=== PATIENT | female | born 1975 | race Caucasian/White ===

== ENCOUNTER 2016-10-25 02:26 | Emergency (ER) | payer MEDICAID ==
[2016-10-25] MEDS ORDERED: MORPHINE SULFATE 10 MG/ML INJ IV ONE ×2 (03:21→12:06)
[2016-10-25] MEDS ORDERED: ONDANSETRON HCL INJ/PF 4 MG/2 ML SDV IV ONE ×2 (03:21→12:06)
[2016-10-25] MEDS ORDERED: NORMAL SALINE 1000 ML 1,000 ML IV ONE ×2 (03:21→05:32)
--- NOTE | 2016-10-25 03:28 | ER Document Report ---
ED GI/ - General Chief Complaint: Epigastric Pain Stated Complaint: ABDOMINAL PAIN AND CHEST PAIN Time seen by provider: 03:20 Notes: Patient is a 41-year-old female that comes emergency department for chief complaint of pain in her chest (she points to the epigastric area), she states the pain radiates through to her back. Symptoms started after eating dinner, she states she has vomited multiple times. Patient has had an appendectomy, tubal ligation, denies recent alcohol, denies any daily medications or medical history otherwise. She denies any cardiovascular history. TRAVEL OUTSIDE OF THE [place] IN LAST 30 DAYS: No - Related Data Allergies/Adverse Reactions: No Known Allergies Allergy (Verified 10/25/16 02:37) Past Medical History - General Information source: Patient - Social History Smoking Status: Never Smoker Frequency of alcohol use: Occasional Drug Abuse: None Lives with: Family Family History: Reviewed & Not Pertinent - Past Medical History Cardiac Medical History: Reports: Hx Hypercholesterolemia Denies: Hx Atrial Fibrillation, Hx Congestive Heart Failure, Hx Coronary Artery Disease, Hx Heart Attack, Hx Hypertension, Hx Peripheral Vascular Disease , Hx Pulmonary Embolism, Hx Heart Murmur Pulmonary Medical History: Denies: Hx Asthma, Hx Bronchitis, Hx COPD, Hx Pneumonia, Hx Respiratory Failure, Hx Sleep Apnea, Hx Tuberculosis Endocrine Medical History: Denies: Hx Graves' Disease, Hx Hyperthyroidism, Hx Hypothyroidism Renal/ Medical History: Reports: Hx Ovarian Cysts. Denies: Hx End Stage Renal Disease, Hx Kidney Stones, Hx Peritoneal Dialysis, Hx Pelvic Inflammatory Disease Malignancy Medical History: Denies: Hx Breast Cancer, Hx Cervical Cancer, Hx Leukemia, Hx Lung Cancer, Hx Ovarian Cancer GI Medical History: Denies: Hx Crohn's Disease, Hx Gastroesophageal Reflux Disease, Hx Hiatal Hernia, Hx Irritable Bowel, Hx Liver Failure, Hx Ulcer Musculoskeltal Medical History: Denies Hx Arthritis, Denies Hx Fibromyalgia, Denies Hx Muscular Dystrophy Psychiatric Medical History: Denies: Hx Bipolar Disorder, Hx Depression, Hx Post Traumatic Stress Disorder , Hx Schizophrenia Traumatic Medical History: Denies: Hx Fractures Infectious Medical History: Denies: Hx HIV Past Surgical History: Reports: Hx Appendectomy, Hx Section, Hx Orthopedic Surgery, Hx Tubal Ligation. Denies: Hx Bowel Surgery, Hx Cholecystectomy, Hx Colostomy, Hx Coronary Artery Bypass Graft, Hx Gastric Bypass Surgery, Hx Herniorrhaphy, Hx Hysterectomy, Hx Mastectomy, Hx Pacemaker, Hx Tonsillectomy - Immunizations Hx Diphtheria, Pertussis, Tetanus Vaccination: No Review of Systems - Review of Systems Constitutional: No symptoms reported EENT: No symptoms reported Cardiovascular: No symptoms reported Respiratory: No symptoms reported Gastrointestinal: See HPI Genitourinary: No symptoms reported Female Genitourinary: No symptoms reported Musculoskeletal: No symptoms reported Skin: No symptoms reported Hematologic/Lymphatic: No symptoms reported Neurological/Psychological: No symptoms reported Physical Exam - Vital signs Vitals: Temp Pulse Resp BP Pulse Ox 97.6 F 71 20 146/80 H 100 10/25/16 02:38 10/25/16 02:38 10/25/16 02:38 10/25/16 02:38 10/25/16 02:38 Interpretation: Normal - General General appearance: Alert, Anxious In distress: Severe - Patient in obvious distress, tearful, holding her abdomen , curled into a ball, lying on her side - HEENT Head: Normocephalic, Atraumatic Eyes: Normal Conjunctiva: Normal Extraocular movements intact: Yes Eyelashes: Normal Pupils: PERRL Nasal: Normal Mouth/Lips: Normal Mucous membranes: Normal Pharynx: Normal Neck: Normal - Respiratory Respiratory status: No respiratory distress Chest status: Nontender Breath sounds: Normal Chest palpation: Normal - Cardiovascular Rhythm: Regular Heart sounds: Normal auscultation Murmur: No - Abdominal Inspection: Normal Distension: No distension Bowel sounds: Normal Tenderness: Tender - Tender with guarding in the right upper quadrant and epigastric area, Guarding Organomegaly: No organomegaly - Back Back: Normal, Nontender - Extremities General upper extremity: Normal inspection, Nontender, Normal color, Normal ROM , Normal temperature General lower extremity: Normal inspection, Nontender, Normal color, Normal ROM , Normal temperature, Normal weight bearing. No: Torito's sign - Neurological Neuro grossly intact: Yes Cognition: Normal Orientation: AAOx4 Jyoti Coma Scale Eye Opening: Spontaneous Jyoti Coma Scale Verbal: Oriented Jyoti Coma Scale Motor: Obeys Commands Jyoti Coma Scale Total: 15 Speech: Normal Motor strength normal: LUE, RUE, LLE, RLE Sensory: Normal - Psychological Associated symptoms: Agitated - Skin Skin Temperature: Warm Skin Moisture: Dry Skin Color: Normal Course - Re-evaluation Re-evalutation: Patient in distress on initial examination, guarding in right upper quadrant and epigastric area. CBC unremarkable, chemistry shows normal bilirubin and LFTs, normal alkaline phosphatase, however lipase is elevated at 1205. Ultrasound showing choledocholithiasis with very large widening of common bile duct at 12.5 mm. Gallstones present, no pericholecystic fluid or wall thickening. Patient is much more comfortable after medications. Patient discussed with Dr. Mckoy per [facility] protocol. 10/25/16 05:30 Called [facility] for potential transfer because of no GI coverage today. Pending call back. Spoke with Dr. Guerrero, patient accepted and pending transfer. 10/25/16 07:10 Introduced to Stella Arellano PA-C at bedside. Patient currently comfortable, no current complaints. - Vital Signs Vital signs: Temp Pulse Resp BP Pulse Ox 98.2 F 84 17 139/74 H 99 10/25/16 07:06 10/25/16 07:06 10/25/16 07:06 10/25/16 07:06 10/25/16 07:06 - Laboratory Result Diagrams: 10/25/16 03:48 10/25/16 03:48 Laboratory results interpreted by me: 10/25/16 03:48 Glucose 127 H Lipase 1205.8 H Discharge - Discharge Clinical Impression: Choledocholithiasis, Epigastric pain Pancreatitis Qualifiers: Chronicity: acute Pancreatitis type: unspecified pancreatitis type Acute pancreatitis complication: unspecified Qualified Code(s): K85.90 - Acute pancreatitis without necrosis or infection, unspecified Vomiting Qualifiers: Vomiting type: unspecified Vomiting Intractability: non-intractable Nausea presence: with nausea Qualified Code(s): R11.2 - Nausea with vomiting, unspecified Condition: Stable Disposition: [facility] [place]
[2016-10-25 03:55] LABS: ABSOLUTE BASOPHILS # (AUTO) 0.1 10^3/uL (0.0-0.2); ABSOLUTE EOSINOPHILS # (AUTO) 0.1 10^3/uL (0.0-0.6); ABSOLUTE MONOCYTES (AUTO) 0.7 10^3/uL (0.1-1.4); ABSOLUTE NEUT (AUTO) 7.3 10^3/uL (1.7-8.2); BASOPHILS % (AUTO) 0.7 % (0-2); EOSINOPHILS % (AUTO) 0.6 % (0-6); HEMATOCRIT 38.5 % (36.0-47.0); HEMOGLOBIN 13.3 g/dL (12.0-15.5); HGB HCT DIFFERENCE 1.4; LYMPHOCYTES % (AUTO) 19.5 % (13-45); MEAN CORPUSCULAR HEMOGLOBIN 28.6 pg (27.0-33.4); MEAN CORPUSCULAR HGB CONC 34.6 g/dL (32.0-36.0); MEAN CORPUSCULAR VOLUME 83 fl (80-97); MONOCYTES % (AUTO) 7.2 % (3-13); RED BLOOD COUNT 4.65 10^6/uL (3.72-5.28); RED CELL DISTRIBUTION WIDTH 13.2 % (11.5-14.0); WHITE BLOOD COUNT 10.1 10^3/uL (4.0-10.5)
[2016-10-25] MEDS ORDERED: KETOROLAC TROMETHAMINE INJ/PF 30 MG/1 ML SDV IV ONE (04:08)
[2016-10-25 04:39] LABS: ALANINE AMINOTRANSFERASE 25 U/L (9-52); ALBUMIN 4.3 g/dL (3.5-5.0); ALKALINE PHOSPHATASE 108 U/L (38-126); ANION GAP 15 (5-19); ASPARTATE AMINO TRANSFERASE 17 U/L (14-36); BILIRUBIN,DIRECT 0.3 mg/dL (0.0-0.4); BILIRUBIN,TOTAL 0.6 mg/dL (0.2-1.3); BLOOD UREA NITROGEN 17 mg/dL (7-20); CALCIUM 9.9 mg/dL (8.4-10.2); CARBON DIOXIDE 26 mmol/L (22-30); CHLORIDE 102 mmol/L (98-107); CREATINE KINASE 86 U/L (30-135); GLUCOSE 127 mg/dL (75-110); LIPASE 1205.8 U/L (23-300); POTASSIUM 4.1 mmol/L (3.6-5.0); SODIUM 142.7 mmol/L (137-145); TOTAL PROTEIN 7.5 g/dL (6.3-8.2)
[2016-10-25 04:50] LABS: CREATINE KINASE MB 0.73 ng/mL (<4.55)
[2016-10-25 04:55] LABS: TROPONIN I < 0.012 ng/mL
[2016-10-25 06:17] LABS: APPEARANCE,URINE SLIGHTLY-CLOUDY; BILIRUBIN,URINE NEGATIVE (NEGATIVE); GLUCOSE, URINE NEGATIVE (NEGATIVE); KETONES,URINE NEGATIVE (NEGATIVE); LEUKOCYTE ESTERASE,URINE NEGATIVE (NEGATIVE); NITRITE,URINE NEGATIVE (NEGATIVE); PROTEIN,URINE NEGATIVE (NEGATIVE); URINE SPECIFIC GRAVITY 1.004; UROBILINOGEN,URINE NEGATIVE mg/dL (<2.0)
[2016-10-25] MEDS ORDERED: NORMAL SALINE 1000 ML 1,000 ML IV PRN (06:26)
--- NOTE | 2016-10-25 10:11 | EKG REPORT ---
SEVERITY:- BORDERLINE ECG - SINUS RHYTHM SHORT ME INTERVAL, ACCELERATED AV CONDUCTION : Confirmed by: Soledad Strickland 25-Oct-2016 10:11:26
[2016-10-25] MEDS ORDERED: PIPERACILLIN/TAZOBACTAM 3.375 GM VIAL IV ONE (12:06)
[2016-10-25 15:20] VITALS: BP 107/50
== END 2016-10-25 15:19 | disposition short-term general hospital (02) ==
LOC: ER 02:26
DX: K80.50 Calculus of bile duct without cholangitis or cholecystitis without obstruction (principal); K85.90 Acute pancreatitis without necrosis or infection, unspecified; R10.13 Epigastric pain; R11.2 Nausea with vomiting, unspecified; R07.9 Chest pain, unspecified; E78.00 Pure hypercholesterolemia, unspecified; Z98.51 Tubal ligation status
CPT/HCPCS: 93005; 99285; 96361; 96375; 96365; 36415; 82553; 82550; 83690; 84703; 85025; 80053; 81001; 84484; 76705; 93010; J1885; J2270; J2405; J7030; J2543

== ENCOUNTER 2016-11-01 14:42 | Emergency (ER) | payer MEDICAID ==
--- NOTE | 2016-11-01 15:22 | ER Document Report ---
HPI - HPI Patient complains to provider of: vaginal itching Onset: Yesterday Onset/Duration: Gradual Pain Level: 4 Context: 41-year-old female has been on antibiotics for a while. She had brisk up a cholecystectomy on 10/28 in [place]. She states that her incisions are little sore but she is here because she thinks she has a vaginal yeast infection. sHe states his itching and some mild labial swelling and burning. No fever. Associated Symptoms: None - ROS ROS below otherwise negative: Yes Systems Reviewed and Negative: Yes All other systems reviewed and negative - REPRODUCTIVE Reproductive: DENIES: : - DERM Skin Color: Normal Past Medical History - General Information source: Patient - Social History Smoking Status: Unknown if Ever Smoked Frequency of alcohol use: None Drug Abuse: None Lives with: Family Family History: Reviewed & Not Pertinent Patient has suicidal ideation: No Patient has homicidal ideation: No - Past Medical History Cardiac Medical History: Reports: Hx Hypercholesterolemia Renal/ Medical History: Reports: Hx Ovarian Cysts Past Surgical History: Reports: Hx Appendectomy, Hx Section, Hx Orthopedic Surgery, Hx Tubal Ligation - Immunizations Hx Diphtheria, Pertussis, Tetanus Vaccination: No Vertical Provider Document - CONSTITUTIONAL Agree With Documented VS: Yes Exam Limitations: No Limitations General Appearance: No Apparent Distress - INFECTION CONTROL TRAVEL OUTSIDE OF THE [place] IN LAST 30 DAYS: No - HEENT HEENT: Normal ENT Exam - NECK Neck: Supple - RESPIRATORY Respiratory: Breath Sounds Normal, No Respiratory Distress O2 Sat by Pulse Oximetry: 98 - CARDIOVASCULAR Cardiovascular: Regular Rate, Regular Rhythm - GI/ABDOMEN Gastrointestinal: Abdomen Soft, Abdomen Non-Tender - incision sites look good - REPRODUCTIVE Notes: inflamed labia, thin discharge, no lesions. Qtip into vagina for wet prep. Course - Re-evaluation Re-evalutation: 11/01/16 17:04 Even though the wet prep did not show yeast since the predominant symptom is itching I will prescribe Diflucan, as well as metronidazole for BV and Macrobid for urinary tract infection. - Vital Signs Vital signs: Temp Pulse Resp BP Pulse Ox 98.7 F 100 16 134/84 H 98 11/01/16 15:11 11/01/16 15:11 11/01/16 15:11 11/01/16 15:11 11/01/16 15:11 Discharge - Discharge Clinical Impression: Bacterial vaginosis Urinary tract infection Qualifiers: Urinary tract infection type: acute cystitis Hematuria presence: without hematuria Qualified Code(s): N30.00 - Acute cystitis without hematuria Condition: Good Disposition: HOME, SELF-CARE Instructions: Vaginosis, Bacterial ([facility]), Urinary Tract Infection ([facility]), Metronidazole ([facility]), Nitrofurantoin ([facility]) Additional Instructions: DOMEBORO packets, dissolve per instructions as a cool compress to genitalia no alcohol with the metronidazole to er if worse urine culutre is pending Please complete the patient satisfaction survey if you get one, and return it.. If you do not receive a survey, then you can go to the [facility] website, [email or web address] and place your comments about your very good care. Thank you very much. It was a pleasure being your medical provider today. Prescriptions: Fluconazole [Diflucan] 150 mg PO ONCE PRN #1 tablet PRN Reason: Metronidazole 500 mg PO BID #14 tablet Nitrofurantoin/Nitrofuran Mac [Macrobid 100 mg Capsule] 100 mg PO BID #14 capsule Forms: Return to Work Referrals: MARTIN DAVIS MD [Primary Care Provider] - Follow up as needed
[2016-11-01 16:46] LABS: AMORPHOUS SEDIMENT,URINE TRACE /HPF; APPEARANCE,URINE CLOUDY; BILIRUBIN,URINE NEGATIVE (NEGATIVE); GLUCOSE, URINE NEGATIVE (NEGATIVE); KETONES,URINE NEGATIVE (NEGATIVE); LEUKOCYTE ESTERASE,URINE LARGE (NEGATIVE); NITRITE,URINE NEGATIVE (NEGATIVE); PROTEIN,URINE NEGATIVE (NEGATIVE); URINE SPECIFIC GRAVITY 1.011; UROBILINOGEN,URINE NEGATIVE mg/dL (<2.0)
[2016-11-01 17:14] VITALS: BP 125/82
== END 2016-11-01 17:14 | disposition home or self-care (01) ==
LOC: ER 14:42
DX: N76.0 Acute vaginitis (principal); B96.89 Other specified bacterial agents as the cause of diseases classified elsewhere; N30.00 Acute cystitis without hematuria; Z79.2 Long term (current) use of antibiotics; Z90.49 Acquired absence of other specified parts of digestive tract
CPT/HCPCS: 81001; 87210; 99283

== ENCOUNTER 2017-05-13 15:43 | Emergency (ER) | payer MEDICAID ==
[2017-05-13] MEDS ORDERED: LIDOCAINE 1% INJ-PF (10 MG/ML) 30 ML SDV INJ ONE (17:05)
--- NOTE | 2017-05-13 17:09 | ER Document Report ---
HPI - HPI Pain Level: 3 Notes: Patient is a 41-year-old female who presents ED complaining of a laceration to the left posterior thumb near the MCP joint prior to arrival. Patient states that she was trying to cut open a bag with a knife and caught her thumb in the process. Patient states that she is still able to move the thumb without any difficulties. She denies any numbness or tingling. Patient states that she was able to get the bleeding under control. She denies any other significant medical history or drug allergies. Denies any smoking or IV drug use. Denies any headache, fever, chest pain, palpitations, syncope, cough, shortness of breath, wheeze, dyspnea, abdominal pain, nausea/vomiting/diarrhea, muscle paralysis/weakness, or rash. Tetanus utd. - ROS Notes: REVIEW OF SYSTEMS: CONSTITUTIONAL : Denies fever, chills, or sweats. Denies recent illness. EENT: Denies eye, ear, throat, or mouth pain or symptoms. Denies nasal or sinus congestion or discharge. Denies throat, tongue, or mouth swelling or difficulty swallowing. CARDIOVASCULAR: Denies chest pain. Denies palpitations or racing or irregular heart beat. Denies ankle edema. RESPIRATORY: Denies cough, cold, or chest congestion. Denies shortness of breath, difficulty breathing, or wheezing. GASTROINTESTINAL: Denies abdominal pain or distention. Denies nausea, vomiting , or diarrhea. GENITOURINARY: Denies difficulty urinating, painful urination, burning, frequency, blood in urine, or discharge. MUSCULOSKELETAL: see hpi SKIN: see hpi NEUROLOGICAL: Denies confusion or altered mental status. Denies passing out or loss of consciousness. Denies dizziness or lightheadedness. Denies headache. Denies weakness or paralysis or loss of use of either side. Denies problems with gait or speech. Denies sensory loss, numbness, or tingling. ALL OTHER SYSTEMS REVIEWED AND NEGATIVE. Dictation was performed using [employer] voice recognition software - REPRODUCTIVE Reproductive: DENIES: : Past Medical History - Social History Smoking Status: Never Smoker Family History: Reviewed & Not Pertinent - Past Medical History Cardiac Medical History: Reports: Hx Hypercholesterolemia Denies: Hx Atrial Fibrillation, Hx Congestive Heart Failure, Hx Coronary Artery Disease, Hx Heart Attack, Hx Hypertension, Hx Peripheral Vascular Disease , Hx Pulmonary Embolism, Hx Heart Murmur Pulmonary Medical History: Denies: Hx Asthma, Hx Bronchitis, Hx COPD, Hx Pneumonia, Hx Respiratory Failure, Hx Sleep Apnea, Hx Tuberculosis Endocrine Medical History: Denies: Hx Graves' Disease, Hx Hyperthyroidism, Hx Hypothyroidism Renal/ Medical History: Reports: Hx Ovarian Cysts. Denies: Hx End Stage Renal Disease, Hx Kidney Stones, Hx Peritoneal Dialysis, Hx Pelvic Inflammatory Disease Malignancy Medical History: Denies: Hx Breast Cancer, Hx Cervical Cancer, Hx Leukemia, Hx Lung Cancer, Hx Ovarian Cancer GI Medical History: Denies: Hx Crohn's Disease, Hx Gastroesophageal Reflux Disease, Hx Hiatal Hernia, Hx Irritable Bowel, Hx Liver Failure, Hx Pancreatitis , Hx Ulcer Musculoskeltal Medical History: Denies Hx Arthritis, Denies Hx Fibromyalgia, Denies Hx Muscular Dystrophy Psychiatric Medical History: Denies: Hx Bipolar Disorder, Hx Depression, Hx Post Traumatic Stress Disorder , Hx Schizophrenia Traumatic Medical History: Denies: Hx Fractures Infectious Medical History: Denies: Hx HIV Past Surgical History: Reports: Hx Appendectomy, Hx Section, Hx Orthopedic Surgery, Hx Tubal Ligation. Denies: Hx Bowel Surgery, Hx Cholecystectomy, Hx Colostomy, Hx Coronary Artery Bypass Graft, Hx Gastric Bypass Surgery, Hx Herniorrhaphy, Hx Hysterectomy, Hx Mastectomy, Hx Pacemaker, Hx Tonsillectomy - Immunizations Hx Diphtheria, Pertussis, Tetanus Vaccination: No Vertical Provider Document - CONSTITUTIONAL Agree With Documented VS: Yes Notes: PHYSICAL EXAMINATION: GENERAL: Well-appearing, well-nourished and in no acute distress. LUNGS: Breath sounds clear to auscultation bilaterally and equal. No wheezes rales or rhonchi. HEART: Regular rate and rhythm without murmurs, rubs, gallops. Musculoskeletal: Lt thumb: + 1.5cm laceration to the posterior left thumb across MCP joint. FROM to passive/active. Strength 5+/5. N/V intact distal. Extremities: No cyanosis, clubbing, or edema b/l. Peripheral pulses 2+. Capillary refill less than 3 seconds. NEUROLOGICAL: Cranial nerves grossly intact. Normal speech, normal gait. Normal sensory, motor exams PSYCH: Normal mood, normal affect. SKIN: see MSK exam. Warm, Dry, normal turgor, no rashes or lesions noted. - INFECTION CONTROL TRAVEL OUTSIDE OF THE [place] IN LAST 30 DAYS: No - RESPIRATORY O2 Sat by Pulse Oximetry: 98 Course - Re-evaluation Re-evalutation: 05/13/17 17:46 Patient is an afebrile, well-hydrated, 41-year-old female presents ED with aLeft posterior thumb laceration. Vitals are stable. PE is otherwise unremarkable for any neurovascular compromise, obvious tendon/ligament rupture, obvious fracture or dislocation. No imaging warranted at this time. Wound was thoroughly cleansed and irrigated. No foreign body was appreciated. Wound edges were approximated appropriately utilizing 4 simple interrupted sutures. Wound dressing was placed along with a splint. Wound instructions were reviewed. Conservative measures for symptoms otherwise. I will send her home with a prescription for Keflex as prophylactic. Tetanus is up-to-date. Recheck with your PCM for wound check in 2-3 days. Her sutures will need removed in 10-12 days. Return to the ED with any worsening/concerning symptoms otherwise as reviewed in discharge. Patient is in agreement. - Vital Signs Vital signs: Temp Pulse Resp BP Pulse Ox 98.6 F 110 H 16 129/81 H 98 05/13/17 15:55 05/13/17 15:55 05/13/17 15:55 05/13/17 15:55 05/13/17 15:55 Procedures - Laceration/Wound Repair Left Thumb Time completed: 17:40 Wound length (cm): 1.5 Wound's Depth, Shape: Superficial, Linear. No: Into muscle, Irregular, Flap, Stellate, Nail-avulsed, Contused tissue, Other Laceration pre-procedure: Sterile PPE donned, Sterile drapes applied, Other - chlorhexadine Anesthetic type: Other - none, pt declined Volume Anesthetic (mLs): 0 Wound explored: Clean, No foreign body removed Irrigated w/ Saline (mLs): 60 Wound Debrided: Minimal Wound Repaired With: Sutures Suture Size/Type: 5:0, Nylon Number of Sutures: 4 Layer Closure?: No Post-procedure wound care: Sterile dressing applied, Splint applied Post-procedure NV exam normal: Yes Complications: No Discharge - Discharge Clinical Impression: Thumb laceration Qualifiers: Encounter type: initial encounter Damage to nail status: without damage Foreign body presence: without foreign body Laterality: left Qualified Code(s): S61.012A - Laceration without foreign body of left thumb without damage to nail , initial encounter Condition: Stable Disposition: HOME, SELF-CARE Instructions: Antibiotic Ointment Protection ([facility]), Laceration Care ([facility]), Prophylactic Antibiotic ([facility]), Soap Cleansing ([facility]) Additional Instructions: Do not shower or bathe for 24 hours. After 24 hours you may shower but no submersion of the wound under water. Keep the original dressing on the wound for 24 hours unless the drainage soaks through. Change the dressing daily thereafter and keep the knots of the suture material clean from any dried discharge. You may leave the wound open to the air once there is no more discharge. Return to the ED and/or your PCM in 2-3 days for a recheck. Monitor for any signs of worsening pain or redness, purulent drainage, streaks, and/or fever. Return to the ED if noticing any of the above symptoms or as needed. Take medications as directed. Your sutures will need to be removed in 10-12 days. Prescriptions: Cephalexin Monohydrate [Keflex 500 mg Capsule] 500 mg PO BID #14 capsule Forms: Elevated Blood Pressure Referrals: [facility] [Provider Group] - Follow up as needed
[2017-05-13 18:05] VITALS: BP 130/88
== END 2017-05-13 18:05 | disposition home or self-care (01) ==
LOC: ER 15:43
DX: S61.012A Laceration without foreign body of left thumb without damage to nail, initial encounter (principal); W26.0XXA Contact with knife, initial encounter; Y93.89 Activity, other specified
CPT/HCPCS: 99282; 12001; J3490

== ENCOUNTER → 2017-07-31 | Outpatient (CLI) | payer MEDICAID ==
--- NOTE | 2017-07-31 12:51 | RADIOLOGY REPORT (SQ) ---
EXAM DESCRIPTION: CERV SP 3 VIEW OR LESS COMPLETED DATE/TIME: 07/31/2017 11:40 am REASON FOR STUDY: ACUTE NECK PAIN M54.2 CERVICALGIA COMPARISON: None. NUMBER OF VIEWS: Three views. TECHNIQUE: AP, lateral and odontoid radiographic images acquired of the cervical spine. LIMITATIONS: None. FINDINGS: MINERALIZATION: Normal. ALIGNMENT: Anatomic. VERTEBRAE: Vertebral bodies of normal height. DISCS: No significant disc space narrowing. No large osteophytes. HARDWARE: None in the spine. SOFT TISSUES: No masses or calcifications. Lung apices clear. OTHER: No other significant finding. IMPRESSION: NO SIGNIFICANT RADIOGRAPHIC FINDING IN THE CERVICAL SPINE. TECHNICAL DOCUMENTATION: JOB ID: [id number] [employer]- All Rights Reserved
== END ==
LOC: RAD 11:28
PROVIDERS: ATTEND Family Medicine
DX: M54.2 Cervicalgia (principal)
CPT/HCPCS: 72040

== ENCOUNTER 2017-10-24 13:35 | Emergency (ER) | payer MEDICAID ==
--- NOTE | 2017-10-24 14:33 | ER Document Report ---
HPI - HPI Patient complains to provider of: Right foot pain Onset: Other - 10 days Onset/Duration: Persistent Quality of pain: Achy Pain Level: 4 Context: Patient presents complaining of a burning sensation to the plantar surface of her right foot. Patient states she saw her primary doctor this week and was diagnosed with heel spurs. Patient complains of continued pain with weightbearing. Patient denies any injury. Associated Symptoms: Other - Right foot pain. denies: Fever Exacerbated by: Standing, Movement, Walking Relieved by: Denies Similar symptoms previously: No Recently seen / treated by doctor: Yes - ROS ROS below otherwise negative: Yes Systems Reviewed and Negative: Yes All other systems reviewed and negative - CONSTITUTIONAL Constitutional: DENIES: Fever, Chills - GASTROINTESTINAL Gastrointestinal: DENIES: Nausea - REPRODUCTIVE Reproductive: DENIES: : - MUSCULOSKELETAL Musculoskeletal: REPORTS: Extremity pain. DENIES: Swelling - DERM Skin Color: Normal Skin Problems: None Past Medical History - General Information source: Patient - Social History Smoking Status: Never Smoker Chew tobacco use (# tins/day): No Frequency of alcohol use: None Drug Abuse: None Lives with: Family Family History: Reviewed & Not Pertinent Patient has suicidal ideation: No Patient has homicidal ideation: No - Past Medical History Cardiac Medical History: Reports: Hx Hypercholesterolemia Denies: Hx Atrial Fibrillation, Hx Congestive Heart Failure, Hx Coronary Artery Disease, Hx Heart Attack, Hx Hypertension, Hx Peripheral Vascular Disease , Hx Pulmonary Embolism, Hx Heart Murmur Pulmonary Medical History: Denies: Hx Asthma, Hx Bronchitis, Hx COPD, Hx Pneumonia, Hx Respiratory Failure, Hx Sleep Apnea, Hx Tuberculosis Renal/ Medical History: Reports: Hx Ovarian Cysts Traumatic Medical History: Denies: Hx Fractures Infectious Medical History: Denies: Hx HIV Past Surgical History: Reports: Hx Appendectomy, Hx Section, Hx Orthopedic Surgery, Hx Tubal Ligation - Immunizations Hx Diphtheria, Pertussis, Tetanus Vaccination: No Vertical Provider Document - CONSTITUTIONAL Agree With Documented VS: Yes Exam Limitations: No Limitations General Appearance: WD/WN, No Apparent Distress - INFECTION CONTROL TRAVEL OUTSIDE OF THE [place] IN LAST 30 DAYS: No - HEENT HEENT: Atraumatic, Normocephalic - NECK Neck: Normal Inspection - RESPIRATORY Respiratory: No Respiratory Distress - CARDIOVASCULAR Pulses: Normal: Dorsalis pedis - MUSCULOSKELETAL/EXTREMETIES Musculoskeletal/Extremeties: MAEW, Tender - Patient with bilateral plantar foot tenderness that extends to medial instep area. Patient with reproducible tenderness along plantar fascia of right foot. Normal skin color and temperature to bilateral feet. - NEURO Level of Consciousness: Awake, Alert, Appropriate Motor/Sensory: No Motor Deficit - DERM Integumentary: Warm, Dry, No Rash Discharge - Discharge Clinical Impression: Plantar fasciitis Condition: Stable Disposition: HOME, SELF-CARE Instructions: Anti-Inflammatory Medication ([facility]), Plantar Fasciitis or Heel Spur ([facility]) Additional Instructions: Return immediately for any new or worsening symptoms Followup with your primary care provider, call tomorrow to make a followup appointment Follow-up with office technologist for further evaluation, call Wednesday for an appointment Prescriptions: Hydrocodone/Acetaminophen [Sutter 5-325 Tablet] 1 each PO Q4 PRN #15 tablet PRN Reason: Naproxen [Naprosyn 250 Nmg Tablet] 1 tab PO BID #14 tablet Forms: Return to Work Referrals: MARTIN DAVIS MD [Primary Care Provider] - Follow up as needed FAM DIAS DPM [ACTIVE STAFF] - Follow up as needed HUNG PETERS DPM [ACTIVE STAFF] - Follow up as needed
[2017-10-24] MEDS ORDERED: IBUPROFEN 800 MG TABLET PO ONE (14:41)
[2017-10-24 16:06] VITALS: BP 117/78
== END 2017-10-24 16:07 | disposition home or self-care (01) ==
LOC: ER 13:35
DX: M72.2 Plantar fascial fibromatosis (principal); M79.671 Pain in right foot
CPT/HCPCS: 99283; 82962; J3490

== ENCOUNTER 2018-05-05 21:42 | Emergency (ER) | payer MEDICAID ==
[2018-05-05] MEDS ORDERED: TRAMADOL HCL 50 MG TABLET PO ONE (23:50)
[2018-05-05] MEDS ORDERED: ACETAMINOPHEN 325 MG TABLET PO ONE (23:50)
[2018-05-05] MEDS ORDERED: LIDOCAINE 5% (700 MG) TRANSDERMAL ADH..PATCH TP ONE (23:50)
[2018-05-05] MEDS ORDERED: KETOROLAC TROMETHAMINE 60 MG/2 ML SDV IM ONE (23:50)
--- NOTE | 2018-05-05 23:55 | ER Document Report ---
ED General - General Chief Complaint: Neck Problem Stated Complaint: NECK/SHOULDER PAIN Time Seen by Provider: 05/05/18 22:26 Notes: Patient is a 42-year old female without chronic medical problems who presents with left neck and upper back pain that started earlier today. Patient states she woke up feeling like she had slept on the area wrong. States there is a mild, throbbing soreness throughout the day. States she helped her father cut down trees later this evening and thereafter moved her neck to the left and felt like something spasm and and since that time is had a severe, spasming, constant pain to the left sternocleidomastoid region, left trapezius and left periscapular region. She states any movement of the arm or neck worsens the pain. She has not tried anything for improvement of the pain prior to arrival. No history of similar symptoms in the past. She denies any weakness or numbness but does state that there are some shooting pains into her left upper extremity. She has not seen her general doctor regarding today's concerns. Denies any direct trauma to the area. Denies any history of cervical spine injuries or fusions. TRAVEL OUTSIDE OF THE [place] IN LAST 30 DAYS: No - Related Data Allergies/Adverse Reactions: No Known Allergies Allergy (Verified 05/13/17 15:55) Past Medical History - General Information source: Patient - Social History Smoking Status: Never Smoker Frequency of alcohol use: None Drug Abuse: None Lives with: Family Family History: Reviewed & Not Pertinent Patient has suicidal ideation: No Patient has homicidal ideation: No - Past Medical History Cardiac Medical History: Reports: Hx Hypercholesterolemia Denies: Hx Atrial Fibrillation, Hx Congestive Heart Failure, Hx Coronary Artery Disease, Hx Heart Attack, Hx Hypertension, Hx Peripheral Vascular Disease , Hx Pulmonary Embolism, Hx Heart Murmur Pulmonary Medical History: Denies: Hx Asthma, Hx Bronchitis, Hx COPD, Hx Pneumonia, Hx Respiratory Failure, Hx Sleep Apnea, Hx Tuberculosis Endocrine Medical History: Denies: Hx Graves' Disease, Hx Hyperthyroidism, Hx Hypothyroidism Renal/ Medical History: Reports: Hx Ovarian Cysts. Denies: Hx End Stage Renal Disease, Hx Kidney Stones, Hx Peritoneal Dialysis, Hx Pelvic Inflammatory Disease Malignancy Medical History: Denies: Hx Breast Cancer, Hx Cervical Cancer, Hx Leukemia, Hx Lung Cancer, Hx Ovarian Cancer GI Medical History: Denies: Hx Crohn's Disease, Hx Gastroesophageal Reflux Disease, Hx Hiatal Hernia, Hx Irritable Bowel, Hx Liver Failure, Hx Pancreatitis , Hx Ulcer Musculoskeletal Medical History: Denies Hx Arthritis, Denies Hx Fibromyalgia, Denies Hx Muscular Dystrophy Psychiatric Medical History: Denies: Hx Bipolar Disorder, Hx Depression, Hx Post Traumatic Stress Disorder , Hx Schizophrenia Traumatic Medical History: Denies: Hx Fractures Infectious Medical History: Denies: Hx HIV Past Surgical History: Reports: Hx Appendectomy, Hx Section, Hx Orthopedic Surgery, Hx Tubal Ligation. Denies: Hx Bowel Surgery, Hx Cholecystectomy, Hx Colostomy, Hx Coronary Artery Bypass Graft, Hx Gastric Bypass Surgery, Hx Herniorrhaphy, Hx Hysterectomy, Hx Mastectomy, Hx Pacemaker, Hx Tonsillectomy - Immunizations Hx Diphtheria, Pertussis, Tetanus Vaccination: No Review of Systems - Review of Systems Notes: Constitutional: Negative for fever. HENT: Negative for sore throat. Eyes: Negative for visual changes. Cardiovascular: Negative for chest pain. Respiratory: Negative for shortness of breath. Gastrointestinal: Negative for abdominal pain, vomiting or diarrhea. Genitourinary: Negative for dysuria. Musculoskeletal: Positive for left neck and left trapezius pain Skin: Negative for rash. Neurological: Negative for headaches, weakness or numbness. 10 point ROS negative except as marked above and in HPI. Physical Exam - Vital signs Vitals: Temp Pulse Resp BP Pulse Ox 98.5 F 86 18 134/76 H 98 05/05/18 22:04 05/05/18 22:04 05/05/18 22:04 05/05/18 22:04 05/05/18 22:04 Interpretation: Normal Notes: PHYSICAL EXAMINATION: GENERAL: Well-appearing, well-nourished and in no acute distress. HEAD: Atraumatic, normocephalic. EYES: Pupils equal round and reactive to light, extraocular movements intact, sclera anicteric, conjunctiva are normal. ENT: nares patent, oropharynx clear without exudates. Moist mucous membranes. NECK: Normal range of motion but with pain toward the left, supple without lymphadenopathy, pain on palpation of the left sternocleidomastoid and left trapezius region. No swelling or bruising of the area. LUNGS: Breath sounds clear to auscultation bilaterally and equal. No wheezes rales or rhonchi. HEART: Regular rate and rhythm without murmurs ABDOMEN: Soft, nontender, normoactive bowel sounds. No guarding, no rebound. No masses appreciated. EXTREMITIES: Normal range of motion, no pitting or edema. No cyanosis. NEUROLOGICAL: RMU motor and sensory distribution intact bilaterally including against resistance for motor testing. 5 out of 5 biceps and triceps strength bilaterally. PSYCH: Normal mood, normal affect. SKIN: Warm, Dry, normal turgor, no rashes or lesions noted. Course - Re-evaluation Re-evalutation: 05/05/18 23:52 Patient presents with what appears to be most consistent with a musculoskeletal spasm of her left sternocleidomastoid, left trapezius and left periscapular region. She has point tenderness to the affected areas, no focal neurologic deficit. No swelling or deformity to the area. No direct trauma to the area to suggest a vascular injury or skeletal injury. No indication for CTA or CT of the cervical spine. RMU motor and sensory distribution is intact bilaterally. Patient does give an appropriate clinical history for a muscle strain as she states that she felt like the area was somewhat sore this morning , began working outside helping to cut down trees and then had spasm of it after she moved her neck. She has had relief after receiving Toradol and a lidocaine patch. At this time will discharge with return precautions and follow -up recommendations. Verbal discharge instructions given a the bedside and opportunity for questions given. Medication warnings reviewed. Patient is in agreement with this plan and has verbalized understanding of return precautions and the need for primary care follow-up in the next 24-72 hours. - Vital Signs Vital signs: Temp Pulse Resp BP Pulse Ox 97.9 F 71 15 123/87 H 99 05/06/18 00:20 05/06/18 00:20 05/06/18 00:20 05/06/18 00:20 05/06/18 00:20 Discharge - Discharge Clinical Impression: Neck pain on left side, Neck muscle spasm Condition: Good Disposition: HOME, SELF-CARE Additional Instructions: Your symptoms appear to be most consistent with a muscle spasm. This can take 2 -3 weeks to completely resolved. For your pain: Take naproxen 500 mg twice daily and acetaminophen 1000 mg every 6 hours. You may use the muscle relaxants that she already have available at home at night to help you sleep. Apply heat to the area 20 minutes every 2 hours while awake. I recommend that she receive a deep tissue massage which can also be quite helpful. Please return to the emergency department immediately if you have worsening of your pain, develop weakness, inability to feel, swelling to the area, or any other symptoms that are worrisome to you. Referrals: MARTIN DAVIS MD [Primary Care Provider] - Follow up as needed
[2018-05-06 00:21] VITALS: BP 123/87
== END 2018-05-06 00:21 | disposition home or self-care (01) ==
LOC: ER 21:42
DX: M54.2 Cervicalgia (principal); M54.6 Pain in thoracic spine; M62.838 Other muscle spasm
CPT/HCPCS: 99283; 96372; J3490 ×2; J1885